=== PATIENT | male | born 1985 ===

== ENCOUNTER 2021-12-11 09:17 | Outpatient (REF) | payer MEDICARE, MEDICAID, SELFPAY ==
[2021-12-11 11:47] LABS: Alanine Aminotransferase 10 U/L (0-40); Anion Gap 9 (12-20); Aspartate Amino Transferase 18 U/L (5-37); Blood Urea Nitrogen 14 mg/dL (9-16); Carbon Dioxide 30 mmol/L (22-29); Chloride 105 mmol/L (96-108); Cholesterol 192 mg/dL; Estimated Glomerular Filt Rate > 60; Glucose Fasting 94 mg/dL (60-99); HDL Cholesterol 58 mg/dL; LDL Cholesterol Calculated 123 mg/dl; Potassium 4.9 mmol/L (3.3-5.1); Sodium 139 mmol/L (135-145); Triglycerides 58 mg/dL
== END 2021-12-11 09:18 | disposition home or self-care (01) ==
LOC: HO.HMGCLDS 09:17
PROVIDERS: PCP Internal Medicine; Visit Provider Internal Medicine
DX: Z00.01 Encounter for general adult medical examination with abnormal findings (principal)
CPT/HCPCS: 36415; 80048; 80061; 84450; 84460

== ENCOUNTER 2023-07-17 08:16 | Outpatient (AMB) | payer OTHER, SELFPAY ==
--- NOTE | 2023-07-17 08:18 | A.OFFPC_ITS ---
Vital Signs 07/17/23 08:20 Height 5 ft 7 in Weight 138 lb BMI 21.6 BP 122/72 Blood Pressure Location Lt brachial Position Sitting Pulse 88 Pulse Source Pulse Oximeter Pulse Oximetry (%) 100 Oxygen Delivery Method Room Air Intake Visit Reasons: Annual PE Intake Note: Pt is here today for his PE Allergies seafood Allergy (Unknown, Uncoded 07/17/23 09:08) nausea bananas Adverse Reaction (Unknown, Uncoded 07/17/23 09:08) weakness Medication List - Last Reconciled 07/17/23 by Brigida Alexander MD omeprazole magnesium (Prilosec OTC) 20 mg PO DAILY sumatriptan succinate take 1 tab at onset of headache; if no relief may repeat 1 tab after at least 2 hrs; max = 4 tabs/24 hr PO Tobacco use date assessed: 07/17/23 Dental Screening Dental Screen Date: 07/17/23 Did you have a dental visit in the last 12 months?: No Was dental information given to patient?: Patient has dentist HPI Annual PE HPI Details 37-year-old male history of heartburn, currently taking omeprazole as needed, and has migraine headaches currently on sumatriptan as needed, here today for his physical exam. . Has not had any of 2 COVID vaccine series, does not want to take it, does not want to get flu vaccines as well. Has been feeling well, but complains of a pruritic occasionally painful rash on lower extremities, left more than the right, which has been present now for the last several weeks. Denies any history of insect bites, no [place] in [place] [facility] Medical History (Updated 07/17/23 @ 09:19 by Brigida Alexander MD) Anxiety and depression COVID-19 vaccine series declined Folliculitis Migraine Mild heartburn Refused influenza vaccine Surgical History No pertinent past surgical history Family History Mother Mental health disorder Depression Brother Mental health disorder Sister Mental health disorder Father CAD (coronary artery disease) Dyslipidemia Social History Housing: House Patient Tobacco Use Status: Never used Tobacco e-Cigarette/Vaping Use: Never Used service: No Current occupational status: unemployed Cognitive needs: No Hearing needs: No Vision needs: No Questionnaire PHQ-9 Over the last 2 weeks, how often have you been bothered by any of the following problems? 1. Little interest or pleasure in doing things: not at all 2. Feeling down, depressed, or hopeless: not at all 3. Trouble falling or staying asleep, or sleeping too much: not at all 4. Feeling tired or having little energy: not at all 5. Poor appetite or overeating: not at all 6. Feeling bad about yourself - or that you are a failure or have let yourself or your family down: not at all 7. Trouble concentrating on things, such as reading the newspaper or watching television: not at all 8. Moving or speaking so slowly that other people could have noticed. Or the opposite - being so fidgety or restless that you have been moving around a lot more than usual: not at all 9. Thoughts that you would be better off or of hurting yourself in some way: not at all Total score: 0 Depression Screening Interpretation: Negative 20174 - PHQ-9 Billing: Yes Source: Developed by Drs. Braeden Pinto, Anabella Ríos, Amari Sanchez and colleagues, with an educational thelma from [employer]. Thrive Questionnaire Date Thrive assessed: 07/17/23 I am a: Patient What is your living situation today?: I have a steady place to live Within the past 12 months, did the food you bought not last and you didn't have the money to get more?: Never true Within the past 12 months, did you worry whether your food would run out before you got money to buy more?: Never true Do you have trouble paying for medicines?: No Do you have trouble getting transportation to medical appointments?: No Do you have trouble paying your heating and electricity bill?: No Do you have trouble taking care of your child, family member or friend?: No Do you have trouble with day-to-day activities such as bathing, preparing meals, shopping, managing finances, etc.?: No Are you currently unemployed and looking for a job?: No Are you interested in more education?: No AUDIT C Alcohol Use Questionnaire (AUDIT-C) 1. How often do you have a drink containing alcohol?: Never Total Score: 0 HAYDEE-7 AMB Questionnaire HAYDEE-7 Date HAYDEE - 7 assessed: 07/17/23 Feeling nervous, anxious, or on edge: 0 = Not at all Not being able to stop or control worryin = Not at all Worrying too much about different things: 0 = Not at all Trouble relaxin = Not at all Being so restless that it is hard to sit still: 0 = Not at all Becoming easily annoyed or irritable: 0 = Not at all Feeling afraid as if something awful might happen: 0 = Not at all Total HAYDEE-7 score (0-4 normal; 5-9 mild; 10-14 moderate; 15-21 severe): 0 Source: Developed by Drs. Braeden Pinto, Anabella Ríos, Amari Sanchez and colleagues, with an educational thelma from [employer]. HAYDEE-7 Assessment Billing HAYDEE-7 Assessment Tool: HAYDEE-7 Assessment 19444 Review of Systems Const Denies body aches, Denies fatigue, Denies fever(s) and Denies weakness Eyes Denies change in vision, Denies eye discharge and Denies itchy eyes ENT Reports Normal hearing present, Denies dizziness, Denies nasal congestion, Denies nasal discharge and Denies sore throat Card Denies chest pain, Denies lightheadedness, Denies palpitations and Denies dyspnea Resp Denies chest congestion, Denies cough, Denies dyspnea and Denies wheezing GI Denies abdominal pain, Denies change in bowel habits and Reports heartburn (occasional) Denies dysuria, Denies urinary frequency and Denies urinary urgency Musc Reports no additional complaints Skin/Breast Reports as per HPI and Denies rash Neuro Reports Normal hearing present, Denies dizziness, Denies Sensory deficit (Neuro) and Denies weakness Psych Reports as per HPI Endo Denies fatigue, Denies polydipsia, Denies polyuria and Denies palpitations Garth/Lymph Denies easy bruising Aller/Immun Denies itchy eyes, Denies seasonal rhinorrhea and Denies wheezing Physical exam (Primary Care) Vital Signs: Last Vital Signs Pulse 88 07/17/23 08:20 BP 122/72 07/17/23 08:20 Pulse Ox 100 07/17/23 08:20 Oxygen Delivery Method Room Air 07/17/23 08:20 BMI result Body Mass Index 21.6 Tobacco/Smoking Status: Tobacco use Status Tobacco use date assessed 07/17/23 07/17/23 08:24 Patient Tobacco Use Status Never used Tobacco 07/17/23 08:24 e-Cigarette/Vaping Use Never Used 07/17/23 08:24 Depression Screening Interpretation: Negative Thrive Assessment: Date of Thrive Assessment Date Thrive assessed 12/08/21 07/17/23 08:24 Const General: cooperative, healthy appearing, no acute distress and alert Orientation/consciousness: patient oriented x3 Limitations: no limitations HENMT Head: Yes normal to inspection, Yes normocephalic and Yes atraumatic Ears: hearing grossly normal bilaterally, external ears normal, TM's normal bilaterally and EAC's normal General nose exam: Normal external nose present and No nasal discharge present Face and sinus: Yes sinuses nontender and Yes face symmetric Mouth: Normal oral and palatal mucosa present, lip normal, tongue normal and moist mucous membranes Eyes Conjunctivae: conjunctivae normal Sclerae: sclerae normal Pupils: Equal, round and reactive pupils present EOM: EOMs intact bilaterally Neck Neck: Yes full ROM and Yes no lymphadenopathy Thyroid: Thyroid normal Chest Chest palpation & inspection: normal inspection of the chest Resp Effort & Inspection: normal respiratory effort and able to speak in complete sentences Auscultation: clear to auscultation bilaterally Cardio Jugular venous distension: no JVD Rate: regular rate Rhythm: regular rhythm Heart sounds: S1 normal heart sound present and S2 normal heart sound present GI Inspection: Yes normal to inspection Palpation (GI): Soft to palpation Auscultation: normal bowel sounds General: Yes no CVA tenderness Male General Exam: Yes normal external exam, No hernia, No inguinal lymphadenopathy and No Genital lesions present Penis: No Genital lesions present Back/Spine/Pelvis Back: no CVA tenderness Skin Other: Erythematous papular pustular lesions noted on lower half of both lower extrem ities, left more than the right Neuro General: patient oriented x3, gait normal, moves all extremities, no focal motor deficits and CN's II-XI intact bilaterally Cranial nerves: Yes Equal, round and reactive pupils present and Yes Normal hearing present Cognition (Neuro): normal cognition Gait exam (Neuro): Normal gait present Motor exam (neuro): 5/5 motor strength present throughout Sensory Exam: No Sensory deficit (Neuro) Extrem General: Yes normal to inspection, Yes full ROM, Yes no pedal edema and Yes normal gait Psych Appearance: grossly normal and well kempt Mental Status: mental status grossly normal Speech and movement: Normal speech and movement present Affect: normal affect Attitude: cooperative Thought process: Normal thought process present Thought content: Normal thought content present Assessment and Plan Assessment & Plan (1) Annual visit for general adult medical examination with abnormal findings: Code(s): Z00.01 - Encounter for general adult medical examination with abnormal findings Plan: Will check appropriate labs. Recommended dental visit every 6 months and regular eye exams, at least every 2 years. Take adequate calcium in diet and vitamin-D 3 at 2000 IU per cap once a day, in addition to weight-bearing exercises to help maintain good muscle tone and weight control. Instructed to do self-testicular exam to check for any mass. Patient declines getting any vaccinations. (2) Folliculitis: Code(s): L73.9 - Follicular disorder, unspecified Plan: Prescription sent for cephalexin 500 mg per capsule to take 1 every 12 hours for 10 days. Wash areas with mild soap and water, avoid scratching. Return to clinic if no improvement of symptoms after antibiotics (3) Mild heartburn: Code(s): R12 - Heartburn Plan: Seen by Dr. Rehman in 2015 had an upper endoscopy done which showed presence of mild reflux and presence of a small hiatal hernia. Continue taking omeprazole 20 mg 1 capsule once a day only as needed for heartburn symptoms. (4) Migraine: Code(s): G43.909 - Migraine, unspecified, not intractable, without status migrainosus Plan: Currently on sumatriptan taken as directed, followed by Neurology (5) COVID-19 vaccine series declined: Code(s): Z28.21 - Immunization not carried out because of patient refusal (6) Refused influenza vaccine: Code(s): Z28.21 - Immunization not carried out because of patient refusal Orders: Orders Lipid Panel Today G43.909 - Migraine, unspecified, not intractable, without status migrainosus, R12 - Heartburn, Z00.01 - Encounter for general adult medical examination with abnormal findings, Z28.21 - Immunization not carried out because of patient refusal Alanine Aminotransferase Today G43.909 - Migraine, unspecified, not intractable, without status migrainosus, R12 - Heartburn, Z00.01 - Encounter for general adult medical examination with abnormal findings, Z28.21 - Immunization not carried out because of patient refusal Aspartate Amino Transferase Today G43.909 - Migraine, unspecified, not intractable, without status migrainosus, R12 - Heartburn, Z00. - Encounter for general adult medical examination with abnormal findings, Z28.21 - Immunization not carried out because of patient refusal Glucose Fasting Today G43.909 - Migraine, unspecified, not intractable, without status migrainosus, R12 - Heartburn, Z00. - Encounter for general adult medical examination with abnormal findings, Z28.21 - Immunization not carried out because of patient refusal Vitamin D 25-OH Total Today G43.909 - Migraine, unspecified, not intractable, without status migrainosus, R12 - Heartburn, Z00. - Encounter for general adult medical examination with abnormal findings, Z28.21 - Immunization not carried out because of patient refusal Medications: New cephalexin 500 mg PO Q12H 10 days 20 caps 0RF L73.9 - Follicular disorder, unspecified Coding Level of Care Code Est Pt Prev Care [id number]) Diagnoses Annual visit for general adult medical examination with abnormal findings Z00.01 Folliculitis L73.9 Mild heartburn R12 Migraine G43.909 COVID-19 vaccine series declined Z. Refused influenza vaccine Z. Additional Codes HAYDEE-7 Assessment Billing - HAYDEE-7 Assessment Tool: HAYDEE-7 Assessment [id number] ([id number])
[2023-07-17 08:20] VITALS: BP 122/72; PULSE 88; O2SAT 100; BMI 21.6
== END 2023-07-17 09:25 | disposition home or self-care (01) ==
PROVIDERS: PCP Internal Medicine; Visit Provider Internal Medicine
DX: Z00.01 Encounter for general adult medical examination with abnormal findings (principal); L73.9 Follicular disorder, unspecified; R12 Heartburn; G43.909 Migraine, unspecified, not intractable, without status migrainosus; Z28.21 Immunization not carried out because of patient refusal
CPT/HCPCS: 99395

== ENCOUNTER 2023-07-31 08:58 | Outpatient (REF) | payer MEDICARE, SELFPAY ==
[2023-07-31 12:05] LABS: Alanine Aminotransferase 8 U/L (0-40); Aspartate Amino Transferase 17 U/L (5-37); Cholesterol 187 mg/dL (<200); Glucose Fasting 88 mg/dL (60-99); HDL Cholesterol 60 mg/dL (>40); LDL Cholesterol Calculated 114 mg/dL (<100); Triglycerides 65 mg/dL (<150)
[2023-07-31 12:23] LABS: Vitamin D 25-OH Total 25.3 ng/mL (>30)
== END 2023-07-31 08:59 | disposition home or self-care (01) ==
LOC: HO.HMGCLDS 08:58
PROVIDERS: PCP Internal Medicine; Visit Provider Internal Medicine
DX: Z00.01 Encounter for general adult medical examination with abnormal findings (principal); R12 Heartburn; G43.909 Migraine, unspecified, not intractable, without status migrainosus; Z28.21 Immunization not carried out because of patient refusal
CPT/HCPCS: 36415; 80061; 82306; 82947; 84450; 84460

== ENCOUNTER 2024-07-24 10:54 | Outpatient (AMB) | payer OTHER, SELFPAY ==
[2024-07-24 11:46] VITALS: BP 122/84; PULSE 83; O2SAT 97; BMI 21.5
--- NOTE | 2024-07-24 11:46 | A.OFFPC_ITS ---
Vital Signs 07/24/24 11:46 Height 5 ft 7 in Weight 137 lb 4 oz BMI 21.5 BP 122/84 Blood Pressure Location Rt brachial Position Sitting Pulse 83 Pulse Source Pulse Oximeter Pulse Oximetry (%) 97 Oxygen Delivery Method Room Air Intake Visit Reasons: Annual PE Allergies seafood Allergy (Unknown, Uncoded 07/24/24 11:57) nausea bananas Adverse Reaction (Unknown, Uncoded 07/24/24 11:57) weakness Medication List - Last Reconciled 07/24/24 by Brigida Alexander MD cholecalciferol (vitamin D3) 125 mcg PO DAILY omeprazole magnesium (Prilosec OTC) 20 mg PO DAILY sumatriptan succinate take 1 tab at onset of headache; if no relief may repeat 1 tab after at least 2 hrs; max = 4 tabs/24 hr PO Tobacco use date assessed: 07/24/24 Dental Screening Dental Screen Date: 07/24/24 Did you have a dental visit in the last 12 months?: No Did you have a dental problem in the last 6 months where you did not have access to dental care?: No Was dental information given to patient?: Patient has dentist HPI HPI Comments History of Present Illness Details 38-year-old male with history of heartbu rn, and migraine headache, here today for his physical exam. He has been feeling well with no complaints at present time. [facility] Medical History (Updated 07/24/24 @ 12:07 by Brigida Alexander MD) Mild heartburn Vitamin D deficiency Folliculitis COVID-19 vaccine series declined Refused influenza vaccine Anxiety and depression Migraine Surgical History No pertinent past surgical history Family History Mother Mental health disorder Depression Brother Mental health disorder Sister Mental health disorder Father CAD (coronary artery disease) Dyslipidemia Social History Housing: House Patient Tobacco Use Status: Never used Tobacco e-Cigarette/Vaping Use: Never Used service: No Current occupational status: unemployed Cognitive needs: No Hearing needs: No Vision needs: No Questionnaire PHQ-9 Over the last 2 weeks, how often have you been bothered by any of the following problems? 1. Little interest or pleasure in doing things: not at all 2. Feeling down, depressed, or hopeless: not at all 3. Trouble falling or staying asleep, or sleeping too much: not at all 4. Feeling tired or having little energy: not at all 5. Poor appetite or overeating: not at all 6. Feeling bad about yourself - or that you are a failure or have let yourself or your family down: not at all 7. Trouble concentrating on things, such as reading the newspaper or watching television: not at all 8. Moving or speaking so slowly that other people could have noticed. Or the opposite - being so fidgety or restless that you have been moving around a lot more than usual: not at all 9. Thoughts that you would be better off or of hurting yourself in some way: not at all Total score: 0 Depression Screening Interpretation: Negative Depression Screening Done: Yes 41786 - PHQ-9 Billing: Yes Source: Developed by Drs. Braeden Pinto, Anabella Ríos, Amari Sanchez and colleagues, with an educational thelma from [employer]. Thrive Questionnaire Date Thrive assessed: 07/24/24 I am a: Patient What is your living situation today?: I choose not to answer this question Within the past 12 months, did the food you bought not last and you didn't have the money to get more?: I choose not to answer this question Within the past 12 months, did you worry whether your food would run out before you got money to buy more?: I choose not to answer this question Do you have trouble paying for medicines?: I choose not to answer this question Do you have trouble getting transportation to medical appointments?: I choose not to answer this question Do you have trouble paying your heating and electricity bill?: I choose not to answer this question Do you have trouble taking care of your child, family member or friend?: I c hoose not to answer this question Do you have trouble with day-to-day activities such as bathing, preparing meals, shopping, managing finances, etc.?: I choose not to answer this question Are you currently unemployed and looking for a job?: I choose not to answer this question Are you interested in more education?: I choose not to answer this question Please select the resources that you would like help with: Transportation and None Currently or been in a relationship where the following occur: I choose not to answer THRIVE Score: 0 AUDIT C Alcohol Use Questionnaire (AUDIT-C) 1. How often do you have a drink containing alcohol?: Monthly or less 2. How many drinks containing alcohol do you have on a typical day when you are drinking?: 1 or 2 3. How often do you have six or more drinks on one occasion?: Never Total Score: 1 HAYDEE-7 AMB Questionnaire HAYDEE-7 Date HAYDEE - 7 assessed: 07/24/24 Feeling nervous, anxious, or on edge: 0 = Not at all Not being able to stop or control worryin = Not at all Worrying too much about different things: 0 = Not at all Trouble relaxin = Not at all Being so restless that it is hard to sit still: 0 = Not at all Becoming easily annoyed or irritable: 0 = Not at all Feeling afraid as if something awful might happen: 0 = Not at all Total HAYDEE-7 score (0-4 normal; 5-9 mild; 10-14 moderate; 15-21 severe): 0 Source: Developed by Drs. Braeden Pinto, Anabella Ríos, Amari Sanchez and colleagues, with an educational thelma from [employer]. HAYDEE-7 Assessment Billing HAYDEE-7 Assessment Tool: HAYDEE-7 Assessment 67561 Review of Systems Const Denies body aches, Denies fatigue, Denies fever(s) and Denies weakness Eyes Denies change in vision, Denies eye discharge and Denies itchy eyes ENT Reports Normal hearing present, Denies dizziness, Denies nasal congestion, Denies nasal discharge and Denies sore throat Card Denies chest pain, Denies lightheadedness, Denies palpitations and Denies dyspnea Resp Denies chest congestion, Denies cough, Denies dyspnea and Denies wheezing GI Denies abdominal pain, Denies change in bowel habits and Reports heartburn (occasional) Denies dysuria, Denies urinary frequency and Denies urinary urgency Musc Reports no additional complaints Skin/Breast Reports as per HPI and Denies rash Neuro Reports Normal hearing present, Denies dizziness, Denies Sensory deficit (Neuro) and Denies weakness Psych Reports as per HPI Endo Denies fatigue, Denies polydipsia, Denies polyuria and Denies palpitations Garth/Lymph Denies easy bruising Aller/Immun Denies itchy eyes, Denies seasonal rhinorrhea and Denies wheezing Physical exam (Primary Care) Vital Signs: Last Vital Signs Pulse 83 07/24/24 11:46 BP 122/84 07/24/24 11:46 Pulse Ox 97 07/24/24 11:46 Oxygen Delivery Method Room Air 07/24/24 11:46 BMI result Body Mass Index 21.5 Tobacco/Smoking Status: Tobacco use Status Tobacco use date assessed 07/24/24 07/24/24 11:51 Patient Tobacco Use Status Never used Tobacco 07/24/24 11:51 e-Cigarette/Vaping Use Never Used 07/24/24 11:51 PHQ-9: PHQ-9 Score PHQ-9: Total score 0 07/24/24 12:08 Depression Screening Interpretation: Negative Thrive Assessment: Date of Thrive Assessment Date Thrive assessed 07/24/24 07/24/24 11:51 Currently or been in a relationship where the following occur: I choose not to answer Const General: cooperative, healthy appearing, no acute distress and alert Orientation/consciousness: patient oriented x3 HENMT Head: Yes normal to inspection, Yes normocephalic and Yes atraumatic Ears: hearing grossly normal bilaterally, external ears normal, TM's normal bilaterally and EAC's normal General nose exam: Normal external nose present and No nasal discharge present Face and sinus: Yes sinuses nontender and Yes face symmetric Mouth: Normal oral and palatal mucosa present, lip normal, tongue normal and moist mucous membranes Eyes Conjunctivae: conjunctivae normal Sclerae: sclerae normal Pupils: Equal, round and reactive pupils present EOM: EOMs intact bilaterally Neck Neck: Yes full ROM and Yes no lymphadenopathy Thyroid: Thyroid normal Chest Chest palpation & inspection: normal inspection of the chest Resp Effort & Inspection: normal respiratory effort and able to speak in complete sentences Auscultation: clear to auscultation bilaterally Cardio Jugular venous distension: no JVD Rate: regular rate Rhythm: regular rhythm Heart sounds: S1 normal heart sound present and S2 normal heart sound present GI Inspection: Yes normal to inspection Palpation (GI): Soft to palpation Auscultation: normal bowel sounds General: Yes no CVA tenderness Male General Exam: Yes normal external exam, No hernia and No inguinal lymphadenopathy Back/Spine/Pelvis Back: no CVA tenderness Skin General skin exam: no rashes or lesions noted Neuro General: patient oriented x3, gait normal, moves all extremities, no focal motor deficits and CN's II-XI intact bilaterally Cranial nerves: Yes Equal, round and reactive pupils present and Yes Normal hearing present Cognition (Neuro): normal cognition Gait exam (Neuro): Normal gait present Motor exam (neuro): 5/5 motor strength present throughout Sensory Exam: No Sensory deficit (Neuro) Extrem General: Yes normal to inspection, Yes full ROM, Yes no pedal edema and Yes normal gait Psych Appearance: grossly normal and well kempt Mental Status: mental status grossly normal Speech and movement: Normal speech and movement present Affect: normal affect Attitude: cooperative Thought process: Normal thought process present Thought content: Normal thought content present Assessment and Plan Assessment & Plan (1) Annual visit for general adult medical examination with abnormal findings: Code(s): Z00.01 - Encounter for general adult medical examination with abnormal findings Plan: Will check appropriate labs. Recommended dental visit every 6 months and regular eye exams, at least every 2 years. Take adequate calcium in diet and vitamin-D 3 at 2000 IU per cap once a day, in addition to weight-bearing exercises to help maintain good muscle tone and weight control. Instructed do self testicular exam check for any mass. Advised to get flu and COVID vaccination but patient does not want to get any vaccines. (2) Migraine: Code(s): G43.909 - Migraine, unspecified, not intractable, without status migrainosus Qualifiers: Intractability: not intractable Migraine type: migraine (< 15 days per month) with aura Status migrainosus presence: without status migrainosus Qualified Code(s): G43.109 - Migraine with aura, not intractable, without status migrainosus Plan: Takes sumatriptan as needed for migraine headache she has been occurring infrequently per patient (3) Refused influenza vaccine: Code(s): Z28.21 - Immunization not carried out because of patient refusal (4) COVID-19 vaccine series declined: Code(s): Z28.21 - Immunization not carried out because of patient refusal (5) Vitamin D deficiency: Code(s): E55.9 - Vitamin D deficiency, unspecified Plan: Will check vitamin-D level Orders: Orders Basic Metabolic Panel Fasting 07/24/24 E55.9 - Vitamin D deficiency, unspecified, Z00.01 - Encounter for general adult medical examination with abnormal findings, Z13.1 - Encounter for screening for diabetes mellitus, Z13.220 - Encounter for screening for lipoid disorders Vitamin D 25-OH Total 07/24/24 E55.9 - Vitamin D deficiency, unspecified, Z00.01 - Encounter for general adult medical examination with abnormal findings, Z13.1 - Encounter for screening for diabetes mellitus, Z13.220 - Encounter for screening for lipoid disorders Lipid Panel 07/24/24 E55.9 - Vitamin D deficiency, unspecified, Z00.01 - Encounter for general adult medical examination with abnormal findings, Z13.1 - Encounter for screening for diabetes mellitus, Z13.220 - Encounter for screening for lipoid disorders Review Flu Vaccine not done: patient reason (Patient declined) Coding Level of Care Code Est Pt Prev Care 18-39y(20617) Diagnoses Annual visit for general adult medical examination with abnormal findings Z00.01 Migraine with aura and without status migrainosus, not intractable G43.109 Intractability: not intractable Migraine type: migraine (< 15 days per month) with aura Status migrainosus presence: without status migrainosus Refused influenza vaccine Z28.21 COVID-19 vaccine series declined Z28.21 Vitamin D deficiency E55.9 Additional Codes HAYDEE-7 Assessment Billing - HAYDEE-7 Assessment Tool: HAYDEE-7 Assessment 06220 ([id number])
== END 2024-07-24 12:46 | disposition home or self-care (01) ==
PROVIDERS: PCP Internal Medicine; Visit Provider Internal Medicine
DX: Z00.00 Encounter for general adult medical examination without abnormal findings (principal); G43.109 Migraine with aura, not intractable, without status migrainosus; Z28.21 Immunization not carried out because of patient refusal; E55.9 Vitamin D deficiency, unspecified
CPT/HCPCS: 99395

== ENCOUNTER 2025-07-01 13:54 | Outpatient (AMB) | payer MEDICARE, SELFPAY ==
--- NOTE | 2025-07-01 14:21 | MHC.OFFVIS ---
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 He stopped taking amitriptyline a few months ago because he did not think medication was helping with headaches anymore. He was getting few headaches a month, sometimes lasting for up to a week at a time, and then he could go some time without any. Headaches were associated with photophobia and nausea. Sleep was so-so. [facility] Medical History (Updated 06/26/25 @ 13:18 by Sam Moffett CMA) Insomnia Mild heartburn Vitamin D deficiency Folliculitis COVID-19 vaccine series declined Refused influenza vaccine Anxiety and depression Migraine Surgical History No pertinent past surgical history Family History Mother Mental health disorder Depression Brother Mental health disorder Sister Mental health disorder Father CAD (coronary artery disease) Dyslipidemia Social History Housing: House Patient Tobacco Use Status: Never used Tobacco e-Cigarette/Vaping Use: Never Used service: No Current occupational status: unemployed Cognitive needs: No Hearing needs: No Vision needs: No Review of Systems Const Denies chills, Denies daytime sleepiness, Denies difficulty sleeping, Denies fatigue, Denies fever(s), Denies frequent falls, Reports headache(s), Denies increased appetite, Denies poor appetite, Denies snoring, Denies weakness, Denies weight gain and Denies weight loss Eyes Denies loss of vision ENT Denies vertigo, Denies dizziness and Reports headache(s) Card Denies chest pain at rest, Denies chest pain with activity, Denies syncope, Denies leg edema and Denies palpitations Resp Denies snoring GI Denies constipation, Denies heartburn, Denies diarrhea and Denies nausea Denies urinary frequency, Denies urinary incontinence and Denies urinary urgency Musc Denies abnormal gait, Denies numbness and Denies tingling Skin/Breast Denies dry skin and Denies rash Neuro Denies abnormal gait, Denies vertigo, Denies dizziness, Denies syncope, Denies frequent falls, Reports headache(s), Denies lack of coordination, Denies loss of vision, Denies memory loss, Denies numbness, Denies restless legs, Denies seizure-like activity, Denies tingling, Denies paresthesias, Denies tremor(s) and Denies weakness Psych Reports anxiety, Denies depression, Denies auditory hallucinations, Denies memory loss, Denies visual hallucinations and Denies suicidal ideation Endo Denies fatigue and Denies palpitations Physical Exam Const Other: General Appearance:? normal, in no acute distress. Skin:? no rashes, no significant birthmarks. Heart:? S1, S2 normal, no murmurs. Lungs:? clear anteriorly and posteriorly. Extremities:? no edema. Psych:? alert, oriented, cognitive function intact, cooperative with exam. Neuro Other: Mental Status:?Normal attention, orientation, memory and affect.? Cranial Nerves:?Pupils are equal, round and reactive to light. External occular muscles are intact. Visual germain are full. Face is symmetrical. Facial sensations are normal. Tongue is midline. Palate elevates symmetrically. Shoulder shrugging is normal. Hearing to bedside conversation is normal. Sensory Exam:?....? Coordination:?No ataxia,?no titubation.? Gait Exam: Within normal limits. Extrapyramidal System:?No tremor, rigidity with normal facial expressions.? Pronator Drift:?Not present.? Involuntary Movements:?No tremors seen.? Speech:?Normal.? Results Reviewed Results Reviewed: CT brain WO at [facility] in 2009: diated cisterna magna MRI brain WO at [facility] in 2017: dilated cisterna magna Assessment & Plan Assessment & Plan (1) Migraine: Code(s): G43.909 - Migraine, unspecified, not intractable, without status migrainosus Category: Medical Qualifiers: Migraine type: migraine (< 15 days per month) with aura Status migrainosus presence: without status migrainosus Intractability: not intractable Qualified Code(s): G43.109 - Migraine with aura, not intractable, without status migrainosus Plan: Start topiramate 25mg 1 tablet at bedtime, use/side effects reviewed. Continue sumatriptan 50mg 1 tablet as needed for migraine. He was not interested in as needed medication for nausea. Plan Meds tried: propranolol, amitriptyline Medications: New topiramate 25 mg PO BEDTIME 30 tabs 2RF 30 days sumatriptan succinate take 1 tab at onset of headache; if no relief may repeat 1 tab after at least 2 hrs; PO 10 tabs 5RF 30 days Discontinued sumatriptan succinate Discontinued Reason: Order take 1 tab at onset of headache; if no relief may repeat 1 tab after at least 2 hrs; max = 4 tabs/24 hr PO Coding Level of Care Code Est Pt Level 4 (27908) Diagnoses Migraine with aura and without status migrainosus, not intractable G43.109 Migraine type: migraine (< 15 days per month) with aura Status migrainosus presence: without status migrainosus Intractability: not intractable
--- OUTSIDE RECORDS SUMMARY | 2025-07-01 14:58 | XMS_ITS | Patient Health Record ---
Author Organization [facility] Address [address] [place] [address] Care Team Providers Care Sales Professional Name Role Phone Brian Renzo Primary Care Provider Reason For Referral No Information Medications Medication SIG (Take, Route, Frequency, Duration) Notes Start Date End Date Status Amitriptyline HCl 10 MG 60 Oral qhs for 2 weeks, then increase to 2 qhs if needed.; Duration: 30 10/20/[address] 40 MG CAPSULE 0 bid; Duration: 30 *please review for potential update for e-prescription and drug interaction check* 10/19/2010 Active SUMATRIPTAN SUCCINATE 100 MG TABLET 9 at onset of migraine. May repeat after 2 hours prn. Limit 2 tabs in 24 hours.; Duration: 0 *please review for potential update for e-prescription and drug interaction check* 10/20/2010 Active Vitamin B-2 100 mg 120 Oral 2 po bid; Duration: 30 01/18/2017 Active AMITRIPTYLINE HCL 10 MG TAB 90 3 po qhs; Duration: 30 *please review for potential update for e-prescription and drug interaction check* 07/19/2016 Active Plan Of Treatment No Information Insurance Providers Payer Name Payer Address Payer Phone Subscriber Number Group Number Insured Name Patient Relationship to Insured Coverage Start Date Coverage End Date [facility] [address] [facility] [address] [place] [phone] [id number] Ji Chen Self - patient is the insured Formerly [facility] [address] [address] [place] [address] [id number] Hadzisav idis, Savas Self - patient is the insured MEDICARE B [address] [place], [place] [id number] [phone] [id number] Temoarcelia idis, Savas Self - patient is the insured [place] Medicaid [address] [place] [address] [phone] [id number] Haddavieelaina idis, Savas Self - patient is the insured
--- OUTSIDE RECORDS SUMMARY | 2025-07-01 14:58 | XMS_ITS | Clinical Summary ---
Author Organization [facility] Address [address] [facility] [address] [place] [phone] Phone Care Team Providers Care Butcher Head Name Role Phone Stephen Escudero MD Primary Care Provider [phone] Allergies No known active allergies Medications No known medications Active Problems No known active problems Social History Tobacco Use Types Packs/Day Years Used Date Smoking Tobacco: Never Education Answer Date Recorded Are you interested in more education? Not on hortensia e 03/17/2023 Are you concerned about learning? Not on file 03/17/2023 No 03/17/2023 No 03/17/2023 Digital Access Answer Date Recorded No 04/17/2023 No 04/17/2023 Reliable internet access at home? Not on file 04/17/2023 Device with a working camera? Not on file Sex and Gender Information Value Date Recorded Sex Assigned at Not on file Legal Sex Male 9:19 AM EDT Gender Identity Not on file Sexual Orientation Not on file Last Filed Vital Signs Vital Sign Reading Time Taken Comments Blood Pressure 99/60 10/04/2017 3:18 PM EST Pulse 84 10/04/2017 3:18 PM EST Temperature 37.1 C (98.8 F) 01/29/2015 11:33 AM EDT Respiratory Rate 16 01/29/2015 11:33 AM EDT Oxygen Saturation 99% 10/04/2017 3:18 PM EST Inhaled Oxygen Concentration - - Weight 59 kg (130 lb) 10/04/2017 3:18 PM EST Height 167.6 cm (5' 6 ) 01/29/2015 11:33 AM EDT Body Mass Index 20.98 01/29/2015 11:33 AM EDT Plan of Treatment Health Maintenance Due Date Last Done Comments Adult Td,Tdap Booster 1985 LIPID PANEL 1985 DEPRESSION SCREENING 1997 HEPATITIS C SCREENING 2003 HIV ONE-TIME SCREENING (18-6 5 YEARS) 2003 SMOKING STATUS SCREENING (On ce After 26 Yrs) 2011 COVID-19 VACCINE (2023-2 5 season) 2024 HEPATITIS A VACCINES Aged Out No long er eligible based on patient's age to complete this topic HIB VACCINES Aged Out No longer eligi ble based on patient's age to complete this topic MENINGOCOCCAL VACCINES (ACWY) Aged Out No longer eligible based on patient's age to complete this topic MENINGOCOCCAL VACCINES (B) Aged Out N o longer eligible based on patient's age to complete this topic PNEUMOCOCCAL VACCINES (0-49 years) Aged Out No longer eligible based on patient's age to complete this topic Medical Devices Not on file Insurance MEDICARE PART A & B [facility] MEDICARE PART A & [place] [facility] [place] A & B Member Subscriber Plan / Payer (Ef fective 2015-Present) Name:Ji Washington Member ID:[id number] Relation to Subscriber:Self Name:Ji Washington Subscriber ID:[id number] Payer ID:[id number] Group ID:Not on file Type:Medicare Address: [employer] [address] [place] [phone] [facility] MEDICARE PART A & [facility] B [facility] Care Teams Butcher Head Relationship Specialty Start Date End Date Stephen Escudero MD [email or web address] PCP - General Internal Medicine 06/22/17 Additional Source Comments The information contained in this document represents components of the legal health record. It is not the complete legal health record.[facility]
--- OUTSIDE RECORDS SUMMARY | 2025-07-01 14:59 | XMS_ITS | Patient Health Record ---
Author Organization [facility] Address [address] [place] [address] Care Team Providers Care Medical Assistant Secretary Name Role Phone Benjamin REAL, Brigida Primary Care Provider Braeden Jung [phone] Allergies Allergen (clinical drug ingredient) Drug/Non Drug Allergy documented on EMR Reaction Allergy Type Onset Date Status enviromental (uncoded) Unknown Allergy Active banana allergenic extract bananas (uncoded) Unknown Allergy Active Fish derivative (substance) fish (uncoded) Unknown Allergy Active Reason For Referral No Information Medications Medication SIG (Take, Route, Frequency, Duration) Notes Start Date End Date Status Omeprazole 20 MG TAKE ONE CAPSULE BY MOUTH EVERY DAY Orally Once a day for 30 days Active SUMAtriptan Succinate 50 MG 1 tablet as needed Orally prn Active Immunizations Vaccine Route Administration Date Status Comme nts Flu vaccine no Preserv 3 and > Unknown 10/04/2016 Admin istered Problems Problem Type SNOMED Code ICD Code Onset Dates Problem Status W/U Status Risk Notes Problem 54353354 Bloating (R14.0) Active confirmed Problem 85893407 Diarrhea (R19.7) Active confirmed Problem 101627647 Eosinophilic esophagitis (K20.0) Active confirmed Problem 65633470 Irritable bowel syndrome without diarrhea (K58.9) Active confirmed Problem 044102279 Nausea (R11.0) Active confirmed Problem 065698375 Abnormal celiac antibody panel (R89.4) Active confirmed Problem 292968040 Gastroesophageal reflux disease without esophagitis (K21.9) Active confirmed Plan Of Treatment Pending Test Test Name Order Date CLOSTRIDIUM DIFF TOXIN A&B (C DIFF) 09/20 STOOL WBC 09/30/2015 GIARDIA AG, STOOL EIA 09/30/2015 OVA & PARASITES (O&P) 09/30/2015 Future Test Test Name Order Date UPPER GI ENDOSCOPY 10/22/2015 Insurance Providers Payer Name Payer Address Payer Phone Subscriber Number Group Number Insured Name Patient Relationship to Insured Coverage Start Date Coverage End Date [facility] [address] [address] [place] [address] [id number] ALTAF CHENEY DIANE Self - patient is the insured Medical (General) History Medical History History ICD Code Eosinophilic esophagitis-thi s was [place] [address] Lipscomb in [place]-at that time erosive esophagitis was noted as well. He has always done well on proton pump inhibitors, and has not required any type of steroid treatment--the other EGD biopsies revealed neg. duodenal bx for celiac disease and positive H.pylori Headaches Asthma Denies PA,DM,CVA,renal disease Positive H.pylori serology EGD in 10/2015--- small hiat al hernia--neg. celiac disease, neg. H.pylori, neg ulcer disease, neg. esophagitis/Jin's, neg. eosinophilic esophagitis Surgical History Surgery Date(Month/Year) Some type of surgery in [facility] ce as a child for constipation--? partial sigmoid resecdtion.
== END 2025-07-01 14:34 | disposition home or self-care (01) ==
LOC: HO.HSM 13:54
PROVIDERS: PCP Internal Medicine; Referring Provider Internal Medicine; Visit Provider Registered Nurse
DX: G43.109 Migraine with aura, not intractable, without status migrainosus (principal)
CPT/HCPCS: 99214

== ENCOUNTER → 2025-07-01 13:54 | Outpatient (BNVA) | payer MEDICARE, SELFPAY | PROVIDERS: PCP Internal Medicine; Referring Provider Internal Medicine; Visit Provider Registered Nurse | DX: G43.109 Migraine with aura, not intractable, without status migrainosus (principal) | CPT/HCPCS: 99212 ==

== ENCOUNTER 2025-08-11 12:39 | Outpatient (AMB) | payer MEDICARE, SELFPAY ==
[2025-08-11 12:46] VITALS: BP 114/74; PULSE 86; RESP 18; TEMP 36.8; O2SAT 98; BMI 22.1
--- NOTE | 2025-08-11 12:46 | A.OFFPC_ITS ---
Vital Signs 08/11/25 12:46 Height 5 ft 7 in Weight 141 lb BMI 22.1 BP 114/74 Blood Pressure Location Lt brachial Position Sitting Respiration 18 Pulse 86 Pulse Source Pulse Oximeter Temp 98.2 F Temp Source Oral Pulse Oximetry (%) 98 Oxygen Delivery Method Room Air Intake Visit Reasons: Annual PE - see comments Intake Note: Pt is here today for his PE Allergies seafood Allergy (Unknown, Uncoded 08/11/25 13:26) nausea bananas Adverse Reaction (Unknown, Uncoded 08/11/25 13:26) weakness Medication List - Last Reconciled 08/11/25 by Brigida Alexander MD cholecalciferol (vitamin D3) 125 mcg PO DAILY omeprazole 20 mg PO DAILY sumatriptan succinate take 1 tab at onset of headache; if no relief may repeat 1 tab after at least 2 hrs; PO 30 days topiramate 25 mg PO BEDTIME 30 days Tobacco use date assessed: 08/11/25 Dental Screening Dental Screen Date: 08/11/25 Did you have a dental visit in the last 12 months?: Yes Did you have a dental problem in the last 6 months where you did not have access to dental care?: No Was dental information given to patient?: Patient has dentist HPI Annual PE - see comments HPI Details 39-year-old male with history of vitamin -D deficiency migraine headache, GERD, here today for his physical exam. He is currently taking omeprazole once a day as needed heartburn symptoms and takes vitamin D3 125 mcg daily. He states that migraine is better controlled with taking topiramate and takes sumatriptan as needed for acute attacks. [facility] Medical History Insomnia Mild heartburn Vitamin D deficiency Folliculitis COVID-19 vaccine series declined Refused influenza vaccine Anxiety and depression Migraine Surgical History No pertinent past surgical history Family History Mother Mental health disorder Depression Brother Mental health disorder Sister Mental health disorder Father CAD (coronary artery disease) Dyslipidemia Social History Housing: House Patient Tobacco Use Status: Never used Tobacco e-Cigarette/Vaping Use: Never Used service: No Current occupational status: unemployed Cognitive needs: No Hearing needs: No Vision needs: No Questionnaire PHQ-9 Over the last 2 weeks, how often have you been bothered by any of the following problems? 1. Little interest or pleasure in doing things: not at all 2. Feeling down, depressed, or hopeless: not at all 3. Trouble falling or staying asleep, or sleeping too much: not at all 4. Feeling tired or having little energy: not at all 5. Poor appetite or overeating: not at all 6. Feeling bad about yourself - or that you are a failure or have let yourself or your family down: not at all 7. Trouble concentrating on things, such as reading the newspaper or watching television: not at all 8. Moving or speaking so slowly that other people could have noticed. Or the opposite - being so fidgety or restless that you have been moving around a lot more than usual: not at all 9. Thoughts that you would be better off or of hurting yourself in some way: not at all Total score: 0 Depression Screening Interpretation: Negative Depression Screening Done: Yes 67690 - PHQ-9 Billing: Yes Source: Developed by Drs. Braeden Pinto, Anabella Ríos, Amari Sanchez and colleagues, with an educational thelma from [employer]. Thrive Questionnaire Date Thrive assessed: 08/11/25 I am a: Patient What is your living situation today?: I choose not to answer this question Within the past 12 months, did the food you bought not last and you didn't have the money to get more?: I choose not to answer this question Within the past 12 months, did you worry whether your food would run out before you got money to buy more?: I choose not to answer this question Do you have trouble paying for medicines?: I choose not to answer this question Do you have trouble getting transportation to medical appointments?: I choose not to answer this question Do you have trouble paying your heating and electricity bill?: I choose not to answer this question Do you have trouble taking care of your child, family member or friend?: I choose not to answer this question Do you have trouble with day-to-day activities such as bathing, preparing meals, shopping, managing finances, etc.?: I choose not to answer this question Are you currently unemployed and looking for a job?: I choose not to answer this question Are you interested in more education?: I choose not to answer this question Please select the resources that you would like help with: Transportation and None Currently or been in a relationship where the following occur: I choose not to answer THRIVE Score: 0 AUDIT C Alcohol Use Questionnaire (AUDIT-C) 1. How often do you have a drink containing alcohol?: Monthly or less 2. How many drinks containing alcohol do you have on a typical day when you are drinking?: 1 or 2 3. How often do you have six or more drinks on one occasion?: Never Total Score: 1 Score Reviewed/Action Taken: Yes HAYDEE-7 AMB Questionnaire HAYDEE-7 Date HAYDEE - 7 assessed: 07/24/24 Feeling nervous, anxious, or on edge: 0 = Not at all Not being able to stop or control worryin = Not at all Worrying too much about different things: 0 = Not at all Trouble relaxin = Not at all Being so restless that it is hard to sit still: 0 = Not at all Becoming easily annoyed or irritable: 0 = Not at all Feeling afraid as if something awful might happen: 0 = Not at all Total HAYDEE-7 score (0-4 normal; 5-9 mild; 10-14 moderate; 15-21 severe): 0 Source: Developed by Drs. Braeden Pinto, Anabella Ríos, Amari Sanchez and colleagues, with an educational thelma from [employer]. HAYDEE-7 Assessment Billing HAYDEE-7 Assessment Tool: HAYDEE-7 Assessment 58113 Review of Systems Const Denies chills, Denies daytime sleepiness, Denies difficulty sleeping, Denies fatigue, Denies fever(s), Denies poor appetite and Denies weakness Eyes Denies change in vision and Denies loss of vision ENT Reports no additional complaints Card Denies chest pain at rest, Denies chest pain with activity, Denies syncope, Denies leg edema, Denies palpitations and Denies dyspnea Resp Denies cough and Denies dyspnea GI Denies abdominal pain, Denies constipation, Denies heartburn (Controlled with omeprazole taken as needed), Denies diarrhea and Denies nausea Denies urinary frequency, Denies urinary incontinence and Denies urinary urgency Musc Denies abnormal gait, Denies numbness and Denies tingling Skin/Breast Denies dry skin and Denies rash Neuro Denies abnormal gait, Denies syncope, Denies lack of coordination, Denies loss of vision, Denies memory loss, Denies numbness, Denies restless legs, Denies seizure-like activity, Denies Sensory deficit (Neuro), Denies tingling, Denies paresthesias, Denies tremor(s) and Denies weakness Psych Reports no additional complaints, Denies memory loss, Denies visual hallucinations and Denies suicidal ideation Endo Denies fatigue and Denies palpitations Garth/Lymph Reports no additional complaints Aller/Immun Reports no additional complaints Physical exam (Primary Care) Vital Signs: Last Vital Signs Temp 98.2 F 08/11/25 12:46 Pulse 86 08/11/25 12:46 Resp 18 08/11/25 12:46 BP 114/74 08/11/25 12:46 Pulse Ox 98 08/11/25 12:46 Oxygen Delivery Method Room Air 08/11/25 12:46 BMI result Body Mass Index 22.1 Tobacco/Smoking Status: Tobacco use Status Tobacco use date assessed 08/11/25 08/11/25 12:48 Patient Tobacco Use Status Never used Tobacco 08/11/25 12:48 e-Cigarette/Vaping Use Never Used 08/11/25 12:48 PHQ-9: PHQ-9 Score PHQ-9: Total score 0 08/11/25 13:27 Depression Screening Interpretation: Negative Thrive Assessment: Date of Thrive Assessment Date Thrive assessed 08/11/25 08/11/25 12:48 Currently or been in a relationship where the following occur: I choose not to answer Const General: no acute distress and alert Orientation/consciousness: patient oriented x3 HENMT Head: Yes normal to inspection and Yes normocephalic Ears: external ears normal, TM's normal bilaterally and Abnormal EAC present excessive cerumen bilateral General nose exam: Normal external nose present Face and sinus: Yes face symmetric Mouth: Normal oral and palatal mucosa present and moist mucous membranes Eyes Conjunctivae: conjunctivae normal Sclerae: sclerae normal Pupils: Equal, round and reactive pupils present EOM: EOMs intact bilaterally Neck Neck: Yes full ROM and Yes no lymphadenopathy Thyroid: Thyroid normal Chest Chest palpation & inspection: normal inspection of the chest Resp Effort & Inspection: normal respiratory effort and able to speak in complete sentences Auscultation: clear to auscultation bilaterally Cardio Rate: regular rate Rhythm: regular rhythm Heart sounds: S1 normal heart sound present and S2 normal heart sound present GI Inspection: Yes normal to inspection Palpation (GI): Soft to palpation Auscultation: normal bowel sounds General: Yes no CVA tenderness Male General Exam: Yes normal external exam and No inguinal lymphadenopathy Back/Spine/Pelvis Back: no CVA tenderness Skin General skin exam: no rashes or lesions noted Neuro General: patient oriented x3, gait normal, moves all extremities, no focal motor deficits and CN's II-XI intact bilaterally Cranial nerves: Yes Equal, round and reactive pupils present Cognition (Neuro): normal cognition Gait exam (Neuro): Normal gait present Motor exam (neuro): 5/5 motor strength present throughout Sensory Exam: No Sensory deficit (Neuro) Extrem General: Yes normal to inspection, Yes full ROM, Yes no pedal edema and Yes normal gait Psych Appearance: grossly normal and well kempt Mental Status: mental status grossly normal Speech and movement: Normal speech and movement present Affect: normal affect Coding Level of Care Code Est Pt Prev Care 18-39y(85805) Diagnoses Migraine with aura and without status migrainosus, not intractable G43.109 Intractability: not intractable Migraine type: migraine (< 15 days per month) with aura Status migrainosus presence: without status migrainosus Mild heartburn R12 Vitamin D deficiency E55.9 Annual visit for general adult medical examination with abnormal findings Z00.01 Additional Codes HAYDEE-7 Assessment Billing - HAYDEE-7 Assessment Tool: HAYDEE-7 Assessment 11238 ([id number]) PHQ-9 - 98202 - PHQ-9 Billing: Yes ([id number]) Assessment & Plan Assessment & Plan (1) Migraine: Code(s): G43.909 - Migraine, unspecified, not intractable, without status migrainosus Category: Medical Qualifiers: Intractability: not intractable Migraine type: migraine (< 15 days per month) with aura Status migrainosus presence: without status migrainosus Qualified Code(s): G43.109 - Migraine with aura, not intractable, without status migrainosus Plan: Continued on topiramate and sumatriptan as needed (2) Mild heartburn: Code(s): R12 - Heartburn Category: Medical Plan: Continue taking omeprazole only as needed for heartburn symptoms, avoid triggers for heartburn (3) Vitamin D deficiency: Code(s): E55.9 - Vitamin D deficiency, unspecified Category: Medical Plan: Will check vitamin-D level, continued on current dose of vitamin-D (4) Annual visit for general adult medical examination with abnormal findings: Code(s): Z00.01 - Encounter for general adult medical examination with abnormal findings Plan: Will check appropriate labs. Recommended dental visit every 6 months and regular eye exams, at least every 2 years. Take adequate calcium in diet and vitamin-D 3 at 2000 IU per cap once a day, in addition to weight-bearing exercises to help maintain good muscle tone and weight control. Instructed to do self testicular exam check for any mass. Patient does not want to get any vaccines at present time. Orders: Orders Aspartate Amino Transferase 08/14/25 E55.9 - Vitamin D deficiency, unspecified, G43.109 - Migraine with aura, not intractable, without status migrainosus, R12 - Heartburn, Z13.1 - Encounter for screening for diabetes mellitus, Z13.220 - Encounter for screening for lipoid disorders Alanine Aminotransferase 08/14/25 E55.9 - Vitamin D deficiency, unspecified, G43.109 - Migraine with aura, not intractable, without status migrainosus, R12 - Heartburn, Z13.1 - Encounter for screening for diabetes mellitus, Z13.220 - Encounter for screening for lipoid disorders Basic Metabolic Panel Fasting 08/14/25 E55.9 - Vitamin D deficiency, unspecified, G43.109 - Migraine with aura, not intractable, without status migrainosus, R12 - Heartburn, Z13.1 - Encounter for screening for diabetes mellitus, Z13.220 - Encounter for screening for lipoid disorders Lipid Panel 08/14/25 E55.9 - Vitamin D deficiency, unspecified, G43.109 - Migraine with aura, not intractable, without status migrainosus, R12 - Heartburn, Z13.1 - Encounter for screening for diabetes mellitus, Z13.220 - Encounter for screening for lipoid disorders Vitamin D 25-OH Total 09/25/25 E55.9 - Vitamin D deficiency, unspecified, G43.109 - Migraine with aura, not intractable, without status migrainosus, R12 - Heartburn, Z13.1 - Encounter for screening for diabetes mellitus, Z13.220 - Encounter for screening for lipoid disorders
== END 2025-08-11 13:38 | disposition home or self-care (01) ==
LOC: HO.HMCC 12:39
PROVIDERS: PCP Internal Medicine; Visit Provider Internal Medicine
DX: G43.109 Migraine with aura, not intractable, without status migrainosus (principal); R12 Heartburn; E55.9 Vitamin D deficiency, unspecified; Z00.01 Encounter for general adult medical examination with abnormal findings; Z00.00 Encounter for general adult medical examination without abnormal findings

== ENCOUNTER → 2025-08-11 12:39 | Outpatient (BNVA) | payer MEDICARE, SELFPAY | PROVIDERS: PCP Internal Medicine; Visit Provider Internal Medicine | DX: Z00.01 Encounter for general adult medical examination with abnormal findings (principal); K21.9 Gastro-esophageal reflux disease without esophagitis; G43.909 Migraine, unspecified, not intractable, without status migrainosus; E55.9 Vitamin D deficiency, unspecified; G43.109 Migraine with aura, not intractable, without status migrainosus; R12 Heartburn | CPT/HCPCS: 96127; 99395 ==

== ENCOUNTER 2025-08-14 09:15 | Outpatient (REF) | payer OTHER, SELFPAY ==
--- OUTSIDE RECORDS SUMMARY | 2025-08-14 10:14 | XMS_ITS | Patient Health Record ---
Author Organization [facility] Address [address] [place] [address] Care Team Providers Care Ocean Export Coordinator Name Role Phone Brian Renzo Primary Care Provider [phone] Reason For Referral No Information Medications Medication [...] Insured Coverage Start Date Coverage End Date [facility] [address] [facility] [address] [place] [id number] Ji Chen Self - patient is the insured [facility] [address] [address] [place] [address] [id number] Hadzisav idis, Savas Self - patient is the insured MEDICARE B [address] [place], [place] [id number] [phone] [id number] Temoarcelia idis, Savas Self - patient is the insured [place] [employer] [address] [place] [address] [phone] [id number] Haddavieelaina idis, Savas Self - patient is the insured
--- OUTSIDE RECORDS SUMMARY | 2025-08-14 10:15 | XMS_ITS | Clinical Summary ---
Author Organization [facility] Address [address] [facility] [address] [place] [phone] Phone Care Team Providers Care Non Licensed Nuclear Equipment Operator Name Role Phone Stephen Escudero MD Primary Care Provider [phone] Allergies No known active allergies Medications No [...] SCREENING (On ce After 26 Yrs) 2011 INFLUENZA VACCINE (#1) 2025 6, 09/18/2013 COVID-19 VACCINE (2023-2 5 season) 2025 HEPATITIS A VACCINES Aged Out No long [...] (0-49 years) Aged Out No longer eligible b ased on patient's age to complete this topic Medical Devices Not on file Insurance [facility] PART A & [facility] PART [facility] PART [facility] B [employer] MEDICARE PART A & [facility] B [facility] MEDICARE PART A & B [place] [facility] Care Teams Non Licensed Nuclear Equipment Operator Relationship Specialty Start Date End Date Stephen Escudero MD PCP - General Internal Medicine 06/22/17 Additional Source Comments The information contained in this document represents components of the legal health record. It is not the complete legal health record.[facility]
--- OUTSIDE RECORDS SUMMARY | 2025-08-14 10:15 | XMS_ITS | Patient Health Record ---
Author Organization [facility] Address [address] [place] [address] Care Team Providers Care Fur Trimmer Name Role Phone Benjamin REAL, Brigida Primary Care Provider Braeden Jung [phone] Allergies Allergen (clinical drug ingredient) Drug/Non Drug [...] Problem Status W/U Status Risk Notes Problem 00779682 Bloating (R14.0) Active confirmed Problem 69164477 Diarrhea (R19.7) Active confirmed Problem 866972406 Eosinophilic esophagitis (K20.0) Active confirmed Problem 98599426 Irritable bowel syndrome without diarrhea (K58.9) Active confirmed Problem 236194850 Nausea (R11.0) Active confirmed Problem 734943889 Abnormal celiac antibody panel (R89.4) Active confirmed Problem 735431933 Gastroesophageal reflux disease without esophagitis (K21.9) Active [...] Insured Coverage Start Date Coverage End Date [facility] [address] [address] [place] [address] [id number] ALTAF CHENEY DIANE Self - patient is the insured Medical (General) History Medical History History ICD Code Eosinophilic esophagitis-thi s [place] [address] Lipscomb in [place]-at that time erosive esophagitis was noted as [...] Surgery Date(Month/Year) Some type of surgery in [facility] ce as a child for constipation--? partial sigmoid resecdtion.
[2025-08-14 13:56] LABS: Alanine Aminotransferase 13 U/L (0-40); Anion Gap 12 (12-20); Aspartate Amino Transferase 27 U/L (5-37); Blood Urea Nitrogen 11 mg/dL (9-16); Calcium 9.8 mg/dL (8.4-10.2); Carbon Dioxide 28 mmol/L (22-29); Chloride 105 mmol/L (96-108); Cholesterol 202 mg/dL (<200); Estimated Glomerular Filt Rate > 60; HDL Cholesterol 62 mg/dL (>40); Potassium 4.5 mmol/L (3.3-5.1); Sodium 140 mmol/L (135-145); Triglycerides 77 mg/dL (<150)
== END 2025-08-14 09:16 | disposition home or self-care (01) ==
LOC: HO.HMGCLDS 09:15
PROVIDERS: PCP Internal Medicine; Visit Provider Internal Medicine
DX: R12 Heartburn (principal); E55.9 Vitamin D deficiency, unspecified; G43.109 Migraine with aura, not intractable, without status migrainosus; Z13.220 Encounter for screening for lipoid disorders; Z13.1 Encounter for screening for diabetes mellitus; Z13.6 Encounter for screening for cardiovascular disorders
CPT/HCPCS: 36415; 80048; 80061; 82306; 84450; 84460

== ENCOUNTER 2025-09-29 11:56 | Outpatient (AMB) | payer MEDICARE, SELFPAY ==
--- NOTE | 2025-09-29 12:00 | MHC.OFFVIS ---
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 He was doing okay. Headaches were better with topiramate, not as frequent or severe. No medication side effects. He may have migraine 1x/month and sumatriptan as needed helped. Sleep was so-so. [facility] Medical History Insomnia Mild heartburn Vitamin D deficiency Folliculitis COVID-19 vaccine series declined Refused influenza vaccine Anxiety and depression Migraine Surgical History No pertinent past surgical history Family History Mother Mental health disorder Depression Brother Mental health disorder Sister Mental health disorder Father CAD (coronary artery disease) Dyslipidemia Social History Housing: House Patient Tobacco Use Status: Never used Tobacco e-Cigarette/Vaping Use: Never Used service: No Current occupational status: unemployed Cognitive needs: No Hearing needs: No Vision needs: No Review of Systems Const Denies chills, Denies daytime sleepiness, Reports difficulty sleeping, Denies fatigue, Denies fever(s), Denies poor appetite and Denies weakness Eyes Denies change in vision and Denies loss of vision ENT Reports no additional complaints Card Denies chest pain at rest, Denies chest pain with activity, Denies syncope, Denies leg edema, Denies palpitations and Denies dyspnea Resp Denies cough and Denies dyspnea GI Denies abdominal pain, Denies constipation, Denies heartburn (Controlled with omeprazole taken as needed), Denies diarrhea and Denies nausea Denies urinary frequency, Denies urinary incontinence and Denies urinary urgency Musc Denies abnormal gait, Denies numbness and Denies tingling Skin/Breast Denies dry skin and Denies rash Neuro Denies abnormal gait, Denies syncope, Denies lack of coordination, Denies loss of vision, Denies memory loss, Denies numbness, Denies restless legs, Denies seizure-like activity, Denies Sensory deficit (Neuro), Denies tingling, Denies paresthesias, Denies tremor(s) and Denies weakness Psych Reports no additional complaints, Denies memory loss, Denies visual hallucinations and Denies suicidal ideation Endo Denies fatigue and Denies palpitations Garth/Lymph Reports no additional complaints Aller/Immun Reports no additional complaints Physical Exam Const Other: General Appearance:? normal, in no acute distress. Skin:? no rashes, no significant birthmarks. Heart:? S1, S2 normal, no murmurs. Lungs:? clear anteriorly and posteriorly. Extremities:? no edema. Psych:? alert, oriented, cognitive function intact, cooperative with exam. Neuro Other: Mental Status:?Normal attention, orientation, memory and affect.? Cranial Nerves:?Pupils are equal, round and reactive to light. External occular muscles are intact. Visual germain are full. Face is symmetrical. Facial sensations are normal. Tongue is midline. Palate elevates symmetrically. Shoulder shrugging is normal. Hearing to bedside conversation is normal. Sensory Exam:?....? Coordination:?No ataxia,?no titubation.? Gait Exam: Within normal limits. Extrapyramidal System:?No tremor, rigidity with normal facial expressions.? Pronator Drift:?Not present.? Involuntary Movements:?No tremors seen.? Speech:?Normal.? Sensory Exam: No Sensory deficit (Neuro) Results Reviewed Results Reviewed[place] [facility] [place] diated cisterna magna [place] [facility] [place]: dilated cisterna magna Assessment & Plan Assessment & Plan (1) Migraine: Code(s): G43.909 - Migraine, unspecified, not intractable, without status migrainosus Category: Medical Qualifiers: Migraine type: migraine (< 15 days per month) with aura Status migrainosus presence: without status migrainosus Intractability: not intractable Qualified Code(s): G43.109 - Migraine with aura, not intractable, without status migrainosus Plan: Continue topiramate 25mg 1 tablet at bedtime. Continue sumatriptan 50mg 1 tablet as needed for migraine. Plan Meds tried: propranolol, amitriptyline Coding Level of Care Code Est Pt Level 4 (22619) Diagnoses Migraine with aura and without status migrainosus, not intractable G43.109 Migraine type: migraine (< 15 days per month) with aura Status migrainosus presence: without status migrainosus Intractability: not intractable
--- OUTSIDE RECORDS SUMMARY | 2025-09-29 14:26 | XMS_ITS | Clinical Summary ---
Author Organization [facility] Address [address] [place] [id number] Phone Care Team Providers Care Side Panel Hanger Name Role Phone Stephen Escudero MD Primary Care Provider [phone] Allergies No known active allergies Medications No [...] VACCINE (#1) 2025 6, 09/18/2013 COVID-19 VACCINE (2024-2 6 season) 2025 HEPATITIS A VACCINES Aged Out [...] file Insurance [facility] B [employer] MED[facility] [facility] A [facility] MEDIC[facility] PART A & [place] [facility] Care Teams Side Panel Hanger Relationship Specialty Start Date End Date Stephen Escudero MD PCP - General Internal Medicine 06/22/17 Additional Source Comments The information contained in this document represents components of the legal health record. It is not the complete legal health record.[facility]
== END 2025-09-29 12:16 | disposition home or self-care (01) ==
LOC: HO.HSM 11:57
PROVIDERS: PCP Internal Medicine; Visit Provider Registered Nurse
DX: G43.109 Migraine with aura, not intractable, without status migrainosus (principal)
CPT/HCPCS: 99214

== ENCOUNTER → 2025-09-29 11:56 | Outpatient (BNVA) | payer MEDICARE, SELFPAY | PROVIDERS: PCP Internal Medicine; Visit Provider Registered Nurse | DX: G43.109 Migraine with aura, not intractable, without status migrainosus (principal) | CPT/HCPCS: 99212 ==